=== PATIENT | male | born 1965 | race Caucasian/White ===

== ENCOUNTER 2024-08-01 15:25 | Emergency (ER) | payer OTHER, SELFPAY ==
--- OUTSIDE RECORDS SUMMARY | 2023-07-10 10:30 | XMS_ITS ---
Author Organization [facility] Address [address] [place] [address] Care Team Providers Care Performance Manager Name Role Phone Alma Farnsworth Primary Care Provider [phone] Phuc [place] [phone] REASON FOR VISIT moved to the Encounters Encounter Location Date Provider Diagnosis [address] Dempsey [address] [address] 07/10/2023 Phuc Saucedo PLAN OF TREATMENT No Information Progress Notes * Reggie PATELB:1965 (59 yo M)Acc No.[id number]:07/10/2023 Patient: Fernando PATEL Provider: Phuc Saucedo MD :1965 Age:58 Y Sex:Male Date:07/10/2023 Address:[address] [place], [place] [id number] Pcp:Alma Farnsworth Subjective: * Chief Complaints: * 1. Moved to the . * Medical History: Objective: Assessment: Plan: * Treatment: * Billing Information: * Visit Code: * Procedure Codes: * The named appointment provid er may or may not be the originator of this progress note, and it is not deemed complete until electronically signed by the appointment provider. Sign off status: Pending * Provider: Phuc Saucedo MD Date: 07/10/2023
--- OUTSIDE RECORDS SUMMARY | 2023-08-02 11:17 | XMS_ITS ---
Author Organization [facility] Address [address] [place] [address] Care Team Providers Care Teacher Visually Impaired Name Role Phone Alma Farnsworth Primary Care Provider [phone] REASON FOR VISIT PRTL: Physical Encounters Encounter Location Date Provider Diagnosis [address] Dempsey [address] [address] 08/02/2023 Alma Farnsworth PLAN OF TREATMENT No Information Progress Notes * JORGEFernandoB:1965 (58 yo M)Acc No.[id number]:08/02/2023 Patient: Fernando PATEL :1965 Age:58 Y Sex:Male Address:[address] [place] [address] Subjective: * Chief Complaints: * PRTL: Physical * Medical History: * Surgical History: * Hospitalization/Major Diagno stic Procedure: * Medications: Objective: Assessment: Plan: * Treatment: * Procedure Codes: * true * Date:
--- OUTSIDE RECORDS SUMMARY | 2023-08-04 04:18 | XMS_ITS ---
Author Organization [facility] Address [address] [place] [address] Care Team Providers Care Conservator Artifacts Name Role Phone Alma Farnsworth Primary Care Provider REASON FOR VISIT PRTL: From [facility] Encounters Encounter Location Date Provider Diagnosis [address] Dempsey [address] [address] 08/04/2023 Alma Farnsworth PLAN OF TREATMENT No Information Progress Notes * JORGE ReggieB:1965 (58 yo M)Acc No.[id number]:08/04/2023 Patient: Fernando PATEL :1965 Age:58 Y Sex:Male Address:[address] [place] [address] Subjective: * Chief Complaints: * PRTL: From [facility] * Medical History: * Surgical History: * Hospitalization/Major Diagno stic Procedure: * Medications: Objective: Assessment: Plan: * Treatment: * Procedure Codes: * true * Date:
[2024-08-01] VITALS (16 sets, daily range): BP systolic 144–150; BP diastolic 79–81; PULSE 46–60; TEMP 36.3; O2SAT 94–100; BMI 24.4
[2024-08-01] MEDS: KETOROLAC TROMETHAMINE 30 MG/ML VIAL IVP (15:47)
[2024-08-01] MEDS: ONDANSETRON PF 4 MG/2 ML VIAL IV (15:47)
--- OUTSIDE RECORDS SUMMARY | 2024-08-01 15:49 | XMS_ITS | Clinical Summary ---
Author Organization [employer] Address [id number] [place] [address] Care Team Providers Care Overhauler Helper Name Role Phone Dianelys Alberto APRN-COUNTRY PRINTER Primary Care Provid er Allergies No known active allergies Medications No known medications Active Problems Problem Noted Date Diagnosed Date Diverticulosis large intesti ne w/o perforation or abscess w/o bleeding 09/14/2020 Adenomatous polyp of descending colon 09/14/2020 Encounter for screening colonoscopy 08/03/2020 ERRONEOUS ENCOUNTER--DISREGARD 08/10/2019 General medical exam 08/09/2019 Routine physical examination 04/28/2018 Assessment & Plan (04/28/2018 9:31 AM EDT): DATE WHEN VACCINE ------- --FLU YRLY IN FALL --TETANUS Q 10 YRS --HZ ONCE AGE 60 na --PREVNAR 13 ONCE AGE 65 na --PPSSV 23 ONCE AGE 66 na CA SCREENING --COLONOSCOPY AGE 50 - 75 Needs in 2019 --FIT AGE 50 - 75 --PSA AGE 50 - 70 Needs in 2019 -STEPHANIE AGE 50 - 70 --PAP AGE 21 - 65 na never--MAMMOGRAM AGE 45 TO 75 na OSTEOPOROSIS --DEXA MENOPAUSAL na OPTHO YEALRY 2019 states UTD DENTAL YEARLY 2019 states UTD TOBACCO USE YEARLY never OBESITY BMI > 30 OVERWT BMI 25 -29 NORMAL BMI 18.5 -24.9 YEARLY YEARLY YEARLY Normal wt Medicare Wellness YEARLY (65) na DM na -diabetic eye exam -diabetic foot exam YEARLY -diabetic shoes -diabetic classes -asa, arb/kenneth, statin Resolved Problems Problem Noted Date Diagnosed Date Resolved Date Encounter for routine adult health examination without abnormal findings 04/28/2018 Immunizations Immunization Administration Dates Next Due Zoster Vaccine Recombinant 01/11/2022,09/18/2021 Family History Medical History Relation Name Comments Coronary artery disease Father CABG after age 60 Diabetes Father Lung cancer Father Hyperlipidemia Mother Relation Name Status Comments Daughter Alive Father Maternal Grandfather Maternal Grandmother Mother Alive Paternal Grandfather Paternal Grandmother Sister Alive Son Alive Social History Tobacco Use Types Packs/Day Years Used Date Smoking Tobacco: Never Smokeless Tobacco: Never Tobacco Cessation:Counseling Given: Not Answered Alcohol Use Standard Drinks/Week Comments No 0 (1 standard drink = 0.6 oz pur e alcohol) Social Connection and Isolat ion Panel [NHANES] Answer Date Recorded In a typical week, how many times do you talk on the phone with family, friends, or neighbors? More than three times a week 07/24/2021 How often do you get togethe r with friends or relatives? Three times a week 07/24/2021 How often do you attend chur or buddhism services? More than 4 times per year 07/24/2021 Do you belong to any clubs o r organizations such as quaker groups, unions, fraternal or athletic groups, or school groups? Yes 07/24/2021 How often do you attend meet ings of the clubs or organizations you belong to? More than 4 times per year 07/24/2021 Are you , , di vorced, , never , or living with a partner? 07/24/2021 AUDIT-C Answer Date Recorded Q1: How often do you have a drink containing alc ohol? Monthly or less 07/24/2021 Q2: How many drinks containi ng alcohol do you have on a typical day when you are drinking? 1 or 2 07/24/2021 Q3: How often do you have si x or more drinks on one occasion? Never 07/24/2021 Overall Financial Resource Strain (CARDIA) Answe r Date Recorded How hard is it for you to pa y for the very basics like food, housing, medical care, and heating? Not hard at all 07/24/2021 PHQ-2 Answer Date Recorded Total Score 0 08/05/2022 [facility] [place] of Occupat ional Health - Occupational Stress Questionnaire Answer Date Recorded Do you feel stress - tense, restless, nervous, or anxious, or unable to sleep at night because your mind is troubled all the time - these days? Not at all 07/24/2021 Exercise Vital Sign Answer Date Recorde d On average, how many days pe r week do you engage in moderate to strenuous exercise (like a brisk walk)? 7 days 07/24/2021 On average, how many minutes do you engage in exercise at this level? 60 min 07/24/2021 PRAPARE - Transportation Answer Date Re corded In the past 12 months, has l ack of transportation kept you from medical appointments or from getting medications? No 08/2021 In the past 12 months, has l ack of transportation kept you from meetings, work, or from getting things needed for daily living? No 07/24/2021 Childcare Answer Date Recorded Do problems getting child ca re make it difficult for you to work or study? No 07/24/2021 Employment Answer Date Recorded Do you need help finding a [employer] center and/or a training program? No 07/24/2021 Hunger Screening Answer Date Recorded Within the past 12 months we worried whether our food would run out before we got money to buy more. Never True 08/05/2022 Within the past 12 months th e food we bought just didn't last and we didn't have money to get more. Never True 08/05/2022 Purpose - Life Answer Date Recorded Purpose and direction in life Unknown Education Answer Date Recorded What is the highest level of school you have completed or the highest degree you have received? 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 Not on file Not on file Not on file Last Filed Vital Signs Vital Sign Reading Time Taken Comments Blood Pressure 122/84 08/05/2022 8:33 AM EDT Pulse 65 08/05/2022 8:33 AM EDT Temperature 36.6 C (97.8 F) 08/05/2022 8:33 AM EDT Respiratory Rate 18 08/05/2022 8:33 AM EDT Oxygen Saturation 97% 08/05/2022 8:33 AM EDT Inhaled Oxygen Concentration - - Weight 77 kg (169 lb 11.2 oz) 08/05/2022 8:33 AM EDT Height 177.8 cm (5' 10 ) 08/05/2022 8:33 AM EDT Body Mass Index 24.35 08/05/2022 8:33 AM EDT Plan of Treatment Health Maintenance Due Date Last Done Comments DTaP,Tdap and Td Vaccines (1 - Tdap) 04/19/1982 Adult BMI Screening 08/06/2023 08/05/2022 Depression Screening 08/06/2023 08/05/2022 Tobacco Screening 08/06/2023 08/05/2022 Colonoscopy 09/05/2023 09/04/2020 COVID-19 Vaccine (2023-2 5 season) 2023 02/01/2022, 12/16/2020, 05/12/2020, Additional history exists Influenza Vaccine 10/18/2024 Zoster (Shingles) Vaccine Completed 01/11/2022, 03/2021 Medical Devices Not on file Insurance [facility] * Guarantor: [employer] Account Type Relation to Patient Date of Phone Billing Address Corporate Employer Care Teams Overhauler Helper Relationship Specialty Start Date End Date Dianelys Alberto, ELECTRIC DISTRIBUTION ENGINEER-COUNTRY PRINTER [address], [place] [address] PCP - General Family Medicine 01/20/19
--- OUTSIDE RECORDS SUMMARY | 2024-08-01 15:49 | XMS_ITS | Clinical Summary ---
Author Organization [facility] Address [address] [place] [address] Care Team Providers Care Automat Watcher Name Role Phone Unavailable Primary Care Provider Unavailabl e Social History Tobacco Use Types Packs/Day Years Used Date Smoking Tobacco: Never Assessed Sex and Gender Information Value Date Recorded Sex Assigned at Not on file Legal Sex Male 6:47 PM EDT Gender Identity Not on file Sexual Orientation Not on file Last Filed Vital Signs Vital Sign Reading Time Taken Comments Blood Pressure - - Pulse - - Temperature - - Respiratory Rate - - Oxygen Saturation - - Inhaled Oxygen Concentration - - Weight 74.8 kg (165 lb) 03/04/2017 12:00 PM EST Height 182.9 cm (6') 03/04/2017 12:00 PM EST Body Mass Index 22.38 03/04/2017 12:00 PM EST Plan of Treatment Not on file
--- NOTE | 2024-08-01 15:52 | ECG_ITS ---
[facility] Test Date: 2024-08-01 Pat Name: RICARDA MILLER Department: Room: - Gender: Male Glassware Verifier: : 1965 Requested By: Order Number: [id number] Reading MD: GERALDO CISSE M.D. Measurements Intervals [place] Rate: 47 P: 63 MI: 190 QRS: 82 QRSD: 94 T: 70 QT: 490 QTc: 453 Interpretive Statements 1130 Sinus bradycardia 8304 Long QTc interval 9150 abnormal ECG No previous ECG available for comparison Electronically Signed On 08-01-2024 21:57:40 EDT by GERALDO CISSE M.D.
[2024-08-01] MEDS: MORPHINE SULFATE 4 MG/ML VIAL IV (15:59)
[2024-08-01 16:54] LABS: Basophils Percent Auto 0.4 % (0.2-2.0); Eosinophils Percent Auto 0.1 % (0.9-7.0); Hematocrit 43.9 % (42.0-54.0); Hemoglobin 14.6 g/dL (14.0-18.0); Immature Granulocytes Abs Auto 0.01 10^3/uL (0.00-0.03); Immature Granulocytes Pct Auto 0.1 % (0.0-0.5); Lymphocytes Percent Auto 10.6 % (20.5-60.0); Mean Corpuscular HGB Conc 33.3 g/dL (29.9-35.2); Mean Corpuscular Hemoglobin 30.9 pg (25.9-34.0); Monocytes Absolute Auto 0.6 10^3/uL (0.3-0.8); Monocytes Percent Auto 5.9 % (1.7-12.0); Neutrophils Percent Auto 82.9 % (43.0-75.0); Platelet Count 199 10^3/uL (150-450); Red Blood Count 4.72 10^6/uL (4.70-6.10); White Blood Count 9.6 10^3/uL (4.0-11.0)
[2024-08-01 17:13] LABS: Alanine Aminotransferase 33 U/L (16-63); Albumin Level 3.6 g/dL (3.4-5.0); Alkaline Phosphatase 64 U/L (46-116); Anion Gap 13.3; Aspartate Amino Transferase 32 U/L (15-37); BUN Creatinine Ratio 22.3; Bilirubin Total 1.7 mg/dL (0.2-1.0); Calcium 9.2 mg/dL (8.5-10.1); Carbon Dioxide 28.3 mmol/L (21.0-32.0); Chloride 106 mmol/L (98-107); Estimated GFR (African America >60 (>=60 mL/min/1.73m^2); Estimated GFR (Non-African Ame >60 (>=60 mL/min/1.73m^2); Globulin 3.5 g/dL; Glucose 92 mg/dL (74-106); Potassium 4.6 mmol/L (3.5-5.1); Sodium 143 mmol/L (136-145); Total Protein 7.1 g/dL (6.4-8.2)
[2024-08-01 17:14] LABS: Troponin I High Sensitivity 12.1 pg/mL (4.0-76.1)
[2024-08-01 17:35] LABS: Bilirubin Urine NEGATIVE (NEGATIVE); Blood Urine LARGE (NEGATIVE); Clarity Urine CLEAR (CLEAR); Color Urine YELLOW (YELLOW); Glucose Urine UA NEGATIVE (NEGATIVE); Ketones Urine 40 mg/dL (NEGATIVE); Leukocyte Esterase Urine NEGATIVE (NEGATIVE); Nitrite Urine NEGATIVE (NEGATIVE); Protein Urine TRACE mg/dL (NEG/TRACE); Specific Gravity Urine 1.025 (1.005-1.025); Urobilinogen Urine 0.2 EU/dL (0.2-1.0)
[2024-08-01 17:44] LABS: Urine Microscopic Indicated YES
[2024-08-01 17:47] LABS: Bacteria Urine TRACE #/HPF (NONE SEEN); Mucus Urine MODERATE (NONE SEEN); Squamous Epithelial Cell Urine FEW #/LPF (NONE/RARE); WBC Urine 0-2 #/HPF (NONE SEEN)
[2024-08-01 17:48] LABS: Cast Seen? SEEN #/LPF (NONE SEEN); Crystals Seen? None Seen #/HPF (None Seen); Hyaline Casts Urine FEW; Urine Culture Indicated NO
--- NOTE | 2024-08-01 18:24 | ED.GENADUL1 ---
HPI HPI - General Adult General Chief complaint: Back Pain/Injury Stated complaint: BACK PAIN Time Seen by Provider: 08/01/24 15:40 Source: patient and family Mode of arrival: Wheelchair Limitations: no limitations History of Present Illness HPI narrative: The patient comes to the ER with a left flank pain that is associated with nausea and vomiting, pain just started before arrival and the patient was just walking he denies any fall or trauma Patient also have some nausea and vomiting and he was having severe pain on arrival Related Data Previous Rx's ?Medication ?Instructions ?Recorded cephalexin 500 mg capsule 500 mg PO BID 7 days #14 caps 08/01/24 diclofenac sodium 75 mg 75 mg PO BID PRN pain #20 tabs 08/01/24 tablet,delayed release oxycodone-acetaminophen 5 mg-325 1 tab PO Q8H PRN pain 3 days #9 08/01/24 mg tablet (Percocet) tabs tamsulosin 0.4 mg capsule (Flomax) 0.4 mg PO DAILY #10 caps 08/01/24 Allergies Allergy/AdvReac Type Severity Reaction Status Date / Time No Known Drug Allergies Allergy Verified 08/01/24 15:29 Opioid HPI Opioid Management Most Recent Opioid Data: Last Pain Scale 9 Today, 16:14 Last APR Pain Assessment Today, 15:47 Review of Systems ROS Status of ROS 10 or more systems reviewed and unremarkable except as noted in history and below PFSH PFSH Social History Little interest or pleasure in doing things: not at all Feeling down, depressed, or hopeless: not at all Exam Narrative Exam Narrative: Nurses notes and vital signs reviewed and patient is not hypoxic. General: Distressed due to pain Skin: Warm, dry, no pallor noted. No rash. Head: Normocephalic, atraumatic. Neck: Supple, non-tender. Eye: Pupils are equal, round and EOMI. No scleral icterus. Ears, Nose, Mouth, and Throat: TM are clear, no nasal mucosal hypertrophy. Oral mucosa is moist, no posterior oropharynx erythema, uvula is mid-line Cardiovascular: Regular Rate and Rhythm without murmur, gallop or rub. Respiratory: No accessory muscle use or respiratory distress. Lungs are clear to auscultation, no wheezing, rales or rhonchi Chest Wall: no tenderness Back: No midline thoracic or lumbar vertebral tenderness. Left CVA tenderness Musculoskeletal: normal ROM, no calf or popliteal tenderness, no lower extremity edema/swelling GI: Abdomen is soft, non-distended. Normal bowel sounds. No masses appreciated. No tenderness to palpation. No rebound, guarding, or rigidity noted. Neurological: A&O x4. No cranial nerve dysfunction observed. No truncal ataxia. Moves all extremities. Sensation intact. Psychiatric: Cooperative and interactive. Normal mood and affect. Constitutional Vital Signs, click to edit/add: Last Vital Signs Temp 97.4 F L 08/01/24 15:29 Pulse 56 L 08/01/24 18:10 Resp 18 08/01/24 18:10 BP 144/79 H 08/01/24 16:11 Pulse Ox 97 08/01/24 18:10 O2 Del Method Room Air 08/01/24 15:29 Course Vital Signs Vital signs: Vital Signs Temperature 97.4 F L 08/01/24 15:29 Pulse Rate 46 L 08/01/24 15:29 Respiratory Rate 20 08/01/24 15:29 Blood Pressure 150/81 H 08/01/24 15:29 Pulse Oximetry 100 08/01/24 15:29 Oxygen Delivery Method Room Air 08/01/24 15:29 Temperature 97.4 F L 08/01/24 15:29 Pulse Rate 56 L 08/01/24 18:10 Respiratory Rate 18 08/01/24 18:10 Blood Pressure 144/79 H 08/01/24 16:11 Pulse Oximetry 97 08/01/24 18:10 Oxygen Delivery Method Room Air 08/01/24 15:29 Medical Decision Making [facility] Narrative Medical decision making narrative: The patient upon presentation was in severe pain he was initially provided with Toradol and Zofran but then he was provided with morphine for pain The patient EKG was showing sinus rhythm with a heart rate of [address] elevation or depression Patient CBC and chemistry showed no acute significant pathology urine shows some blood and some bacteria but no significant signs of UTI The patient CAT scan showed that he had 2 mm kidney stone on the left UVJ junction, please refer to the report of the radiology for further evaluation of the CAT scan The patient was provided with report of the CAT scan he also had mild hydronephrosis on the left side The patient was started on Flomax and instructed about straining his urine discharged home with Percocet for pain control as well as Voltaren Keflex was provided prophylaxis for UTI because of the bacteria The patient was instructed about coming back to the ER in case of worsening of the pain or any fever he also was to be referred to urology as outpatient The patient is to follow up with primary care physician in next 2-3 days or to return to the emergency department should any of the signs or symptoms worsen or new symptoms develop. The patient agrees with the following Diagnosis and Treatment plan and the patient will be discharged home. Lab Data Labs: Lab Results 08/01/24 08/01/24 Range/Units 16:42 17:22 WBC 9.6 (4.0-11.0) 10^3/uL RBC 4.72 (4.70-6.10) 10^6/uL Hgb 14.6 (14.0-18.0) g/dL Hct 43.9 (42.0-54.0) % MCV 93.0 (80.0-94.0) fL MCH 30.9 (25.9-34.0) pg MCHC 33.3 (29.9-35.2) g/dL RDW 12.0 (11.0-15.0) % Plt Count 199 (150-450) 10^3/uL MPV 10.0 (9.5-13.5) fL Neut % (Auto) 82.9 H (43.0-75.0) % Lymph % (Auto) 10.6 L (20.5-60.0) % [place] % (Auto) 5.9 (1.7-12.0) % Eos % (Auto) 0.1 L (0.9-7.0) % Baso % (Auto) 0.4 (0.2-2.0) % Neut # (Auto) 8.0 H (1.4-6.5) 10^3/uL Lymph # (Auto) 1.0 L (1.2-3.8) 10^3/uL [place] # (Auto) 0.6 (0.3-0.8) 10^3/uL Eos # (Auto) 0.0 (0.0-0.7) 10^3/uL Baso # (Auto) 0.0 (0.0-0.1) 10^3/uL Abs Immat Gran (auto) 0.01 (0.00-0.03) 10^3/uL Imm/Tot Granulo (auto) 0.1 (0.0-0.5) % Sodium 143 (136-145) mmol/L Potassium 4.6 (3.5-5.1) mmol/L Chloride 106 (98-107) mmol/L Carbon Dioxide 28.3 (21.0-32.0) mmol/L Anion Gap 13.3 BUN 21.0 H (7.0-18.0) mg/dL Creatinine 0.94 (0.70-1.30) mg/dL Est GFR ( Amer) >60 (>=60 mL/min/1.73m^2) Est GFR (Non-Af Amer) >60 (>=60 mL/min/1.73m^2) BUN/Creatinine Ratio 22.3 Glucose 92 (74-106) mg/dL Calcium 9.2 (8.5-10.1) mg/dL Total Bilirubin 1.7 H (0.2-1.0) mg/dL AST 32 (15-37) U/L ALT 33 (16-63) U/L Alkaline Phosphatase 64 (46-116) U/L Troponin I High Sens 12.1 (4.0-76.1) pg/mL Total Protein 7.1 (6.4-8.2) g/dL Albumin 3.6 (3.4-5.0) g/dL Globulin 3.5 g/dL Albumin/Globulin Ratio 1.0 Urine Color Yellow (YELLOW) Urine Clarity Clear (CLEAR) Urine pH 6.0 (5.0-9.0) Ur Specific [place] 1.025 (1.005-1.025) Urine Protein Trace (NEG/TRACE) mg/dL Urine Glucose (UA) Negative (NEGATIVE) mg/dL Urine Ketones 40 A (NEGATIVE) mg/dL Urine Occult Blood Large A (NEGATIVE) Urine Nitrite Negative (NEGATIVE) Urine Bilirubin Negative (NEGATIVE) Urine Urobilinogen 0.2 (0.2-1.0) EU/dL Ur Leukocyte Esterase Negative (NEGATIVE) Urine RBC 10-20 A (0-2) #/HPF Urine WBC 0-2 A (NONE SEEN) #/HPF Ur Squamous Epith Cells Few A (NONE/RARE) #/LPF Urine Crystals None seen (None Seen) #/HPF Urine Bacteria Trace A (NONE SEEN) #/HPF Urine Casts Seen A (NONE SEEN) #/LPF Hyaline Casts Few Urine Mucus Moderate A (NONE SEEN) Ur Culture Indicated? No Discharge Plan Discharge Chief Complaint: Back Pain/Injury Clinical Impression: Kidney stone, Hydronephrosis Patient Disposition: Home, Self-Care Time of Disposition Decision: 18:25 Condition: Good Prescriptions / Home Meds: New tamsulosin [Flomax] 0.4 mg capsule 0.4 mg PO DAILY Qty: 10 0RF oxycodone-acetaminophen [Percocet] 5-325 mg tablet 1 tab PO Q8H PRN (Reason: pain) 3 Days Qty: 9 0RF cephalexin 500 mg capsule 500 mg PO BID 7 Days Qty: 14 0RF diclofenac sodium 75 mg tablet,delayed release (DR/EC) 75 mg PO BID PRN (Reason: pain) Qty: 20 0RF Print Language: Ukrainian Instructions: Kidney Stones (ED), Hydronephrosis (ED) Referrals: Beverly Santiago MD [Physician, Urology] - As soon as possible Physician,Non-Staff, [Primary Care Provider] - 1 week
[2024-08-01] MEDS: TAMSULOSIN HCL 0.4 MG CAPSULE PO (18:32)
[2024-08-01] MEDS: OXYCODONE HCL/ACETAMINOPHEN 5MG/325MG 1 TAB PO (18:33)
== END 2024-08-01 18:39 | disposition home or self-care (01) ==
PROVIDERS: Emergency Provider Emergency Medicine
DX: N13.2 Hydronephrosis with renal and ureteral calculous obstruction (principal)
CPT/HCPCS: 36415; 74176; 80053; 81001; 84484; 85025; 93005; 96374; 96375; 99285; J1885; J2270; J2405